=== PATIENT | female | born 1940 | race Caucasian/White ===

== ENCOUNTER 2017-04-13 20:10 | Inpatient (IN) | payer OTHER, MEDICARE ==
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
[2017-04-13 20:57] LABS: % IMMATURE GRANULYOCYTES 0.2 % (0.0-1.1); ABSOLUTE IMMATURE GRANULOCYTES 0.01 10^3/uL (0.00-0.10); ADD DIFF? NO; ADD MORPH? NO; ADD SCAN? NO; ATYPICAL LYMPHOCYTE FLAG 20 (0-99); FRAGMENT RBC FLAG 0 (0-99); HEMATOCRIT 44.2 % (38.0-47.0); HEMOGLOBIN 14.6 g/dL (12.6-16.3); LEFT SHIFT FLG 0 (0-99); LIPEMIA HEMOLYSIS FLAG 80 (0-99); MEAN CELL HEMOGLOBIN 28.9 pg (27.9-34.1); MEAN CELL VOLUME 87.4 fL (81.5-99.8); PLATELET CLUMPS FLAG 0 (0-99); PLATELET COUNT 238 10^3/uL (150-400); RED BLOOD CELL COUNT 5.06 10^6/uL (4.18-5.33); RED CELL DISTRIBUTION WIDTH 13.2 % (11.5-15.2)
--- NOTE | 2017-04-13 21:01 | CPEKG ---
Heart Rate: 69 RR Interval: 870 P-R Interval: 160 QRSD Interval: 96 QT Interval: 452 QTC Interval: 485 P George: 48 QRS George: -26 T Wave George: 118 EKG Severity - ABNORMAL ECG - EKG Impression: SINUS RHYTHM EKG Impression: MULTIPLE VENTRICULAR PREMATURE COMPLEXES EKG Impression: ANTERIOR Q WAVES, POSSIBLY DUE TO LVH Electronically Signed By: Skyler Escobar 13-Apr-2017 21:11:47
[2017-04-13 21:05] LABS: COLOR YELLOW; LEUKOCYTE ESTERASE,URINE 3+ (NEGATIVE); NITRITE,URINE NEGATIVE (NEGATIVE)
[2017-04-13 21:12] LABS: BACTERIA TRACE /hpf (NONE SEEN); WBC,URINE 25-50 /hpf (0-3)
[2017-04-13 21:14] LABS: ANION GAP 15 mEq/L (8-16); CALCIUM 10.2 mg/dL (8.5-10.4); CARBON DIOXIDE 26 mEq/l (22-31); CHLORIDE 101 mEq/L (97-110); CREATININE 0.7 mg/dL (0.6-1.0); GLOMERULAR FILTRATION RATE > 60; GLUCOSE 113 mg/dL (70-100); POTASSIUM 3.3 mEq/L (3.5-5.2); SODIUM 142 mEq/L (134-144)
[2017-04-13] MEDS ORDERED: ACETAMINOPHEN 325 MG TAB PO PRN (22:58)
[2017-04-13] MEDS ORDERED: ONDANSETRON 4 MG/2 ML VIAL IVP PRN (22:58)
[2017-04-13] MEDS ORDERED: ONDANSETRON DISINTEGRATING 4 MG TAB PO PRN (22:58)
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
[2017-04-13] MEDS: oxyCODONE IR 5 MG TAB PO PRN (23:55)
[2017-04-14] MEDS: oxyCODONE IR 5 MG TAB PO PRN ×5 (03:50→22:07)
[2017-04-14] MEDS: ENOXAPARIN 30 MG/0.3 ML SYR SC SCH (07:56)
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
[2017-04-15] MEDS: oxyCODONE IR 5 MG TAB PO PRN ×4 (04:15→19:05)
[2017-04-15] MEDS: LEVOTHYROXINE 88 MCG TAB PO SCH (04:15)
[2017-04-15] MEDS: ENOXAPARIN 30 MG/0.3 ML SYR SC SCH (08:55)
[2017-04-15] MEDS: ASPIRIN 325 MG TAB PO SCH (09:57)
--- NOTE | 2017-04-15 14:07 | HOSPPROG ---
Hospitalist Progress Note Assessment/Plan: 76 yo F with hx of CVA and hypothyroid presenting with inability to care for herself and safely ambulate, possible UTI. Has a history of CVA and is unable to care for herself at home. Today she tells me that her son provides much of her care. She says that he is not harming her and has only been helpful to her. Today is my 1st encounter with the patient. Chart reviewed. * Failure to thrive with inability to care for herself Linda tells me she is unable to walk or use her left side due to the CVA she would very much like to return home but is willing to go to a fdc facility for rehab as long as she could return home * severe protein calorie malnutrition, underweight with a BMI of 16 will ask dietary to see * possible urinary tract infection on antibiotics/ day 2. * history CVA recently on aspirin therapy * hypothyroidism * DVT prophylaxis: low-molecular weight heparin * plan. Spoke with the patient and she is willing to consider a fdc facility to get stronger. She is a bit fearful about going to a fdc facility because her mom in one. patient told the nursing staff that she is having pain on her left side when she deep breathes. Will get a chest x-ray for further evaluation. Subjective: Linda said overall she is feeling poorly, nothing in particular. Objective: Vital Signs Temp Pulse Resp BP Pulse Ox 36.8 C 64 16 146/80 H 91 L 04/15/17 11:33 04/15/17 11:33 04/15/17 11:33 04/15/17 11:33 04/15/17 08:14 04/14/17 04/15/17 04/16/17 05:59 05:59 05:59 Intake Total 0 Balance 0 - Physical Exam Constitutional: not in pain, chronically ill appearing Eyes: PERRL Ears, Nose, Mouth, Throat: hearing normal Cardiovascular: regular rate and rhythym Respiratory: no respiratory distress Gastrointestinal: normoactive bowel sounds Skin: other Musculoskeletal: other ( left arm contracted up) Neurologic: AAOx3 Psychiatric: interacting appropriately ICD10 Worksheet Patient Problems: Problems Problem Status Onset Urinary tract infection Acute
[2017-04-16] MEDS: oxyCODONE IR 5 MG TAB PO PRN ×5 (00:22→22:39)
[2017-04-16] MEDS: LEVOTHYROXINE 88 MCG TAB PO SCH (04:15)
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
[2017-04-16] MEDS: ASPIRIN 325 MG TAB PO SCH (09:31)
[2017-04-16] MEDS: ENOXAPARIN 30 MG/0.3 ML SYR SC SCH (09:31)
[2017-04-17] MEDS: oxyCODONE IR 5 MG TAB PO PRN ×5 (02:18→20:44)
[2017-04-17] MEDS: LEVOTHYROXINE 88 MCG TAB PO SCH (06:26)
[2017-04-17] MEDS: ASPIRIN 325 MG TAB PO SCH (10:42)
[2017-04-17] MEDS: ENOXAPARIN 30 MG/0.3 ML SYR SC SCH (10:43)
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
[2017-04-18] MEDS: oxyCODONE IR 5 MG TAB PO PRN ×5 (00:06→15:25)
[2017-04-18] MEDS: LEVOTHYROXINE 88 MCG TAB PO SCH (05:06)
[2017-04-18] MEDS: ASPIRIN 325 MG TAB PO SCH (08:15)
[2017-04-18] MEDS: ENOXAPARIN 30 MG/0.3 ML SYR SC SCH (08:16)
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
[2017-04-19] MEDS: LEVOTHYROXINE 88 MCG TAB PO SCH (06:13)
[2017-04-19] MEDS: oxyCODONE IR 5 MG TAB PO PRN ×2 (06:30→14:20)
[2017-04-19] MEDS: ASPIRIN 325 MG TAB PO SCH (09:11)
[2017-04-19] MEDS: ENOXAPARIN 30 MG/0.3 ML SYR SC SCH (09:12)
--- NOTE | 2017-04-19 17:04 | ASMTCMCOM ---
CM Note CM Note Notes: CM met w/ pt for dispo planning. Pt reports that her son got out of penitentiary but she has not spoken to him. Pt's ideal plan is to return home with son being the primary flight hostess. CM spoke w/ Violetta Santos NP. PT/OT recommending SNF. Pt is agreeable for CM to make referral to SNF. Made referral to [facility] and [facility]. CM awaiting to hear back. CM to follow. Date Signed: 04/15/2017 03:39 PM Electronically Signed By:Aria Tran
--- NOTE | 2017-04-19 17:05 | ASMTCMCOM ---
CM Note CM Note Notes: Received call late yesterday, Ritchie Green [phone] from [employer]PS will come Thursday am to visit with pt. Date Signed: 04/17/2017 09:01 AM Electronically Signed By:Yaneth Modi
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
--- NOTE | 2017-04-19 17:07 | ASMTCMCOM ---
CM Note JOEY Note Notes: Ritchie Green from APS here to see pt he also spoke w/Kurt from [facility]'s office victims advocates. CM went in with Ritchie to discuss protection order with patient. He explained to pt that a document photographer put order in place and cannot be rescinded until son has court hearing. JOEY also reviewed snfs with pt, pt still refusing [facility] (mother there) or [facility] [place], states doesn't know anyone in [place]). JOEY discussed matter with Princess from [facility], she needs to talk her workers compensation administrator to see if they can take pt. JOEY w/f Date Signed: 04/17/2017 04:46 PM Electronically Signed By:Yaneth Modi
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
--- NOTE | 2017-04-19 17:08 | ASMTCMCOM ---
CM Note CM Note Notes: Princess called from [facility] and declined pt. [facility] [place] is still pending. CM to follow. Date Signed: 04/18/2017 11:52 AM Electronically Signed By:Aria Tran
--- NOTE | 2017-04-19 17:08 | ASMTCMCOM ---
CM Note CM Note Notes: RN came to CM, male in pt's room wondering if it is son. CM went to pt's room and asked who he was, he stated Brenton (pt's son) states his mother has been calling and he needed to give her some papers. CM told Brenton he had a court order and was not allowed contact with pt and he had to leave. CM told broker in charge to call security and he was escorted out of hospital. Security requesting copy of court order to be faxed. Date Signed: 04/17/2017 04:58 PM Electronically Signed By:Yaneth Modi
--- NOTE | 2017-04-19 17:18 | HOSPPROG ---
Hospitalist Progress Note Assessment/Plan: Assessment: 76 yo F with hx of CVA and hypothyroid presenting with inability to care for herself and safely ambulate, possible UTI. Plan: 1. Inability to complete ADLs. Patient unable to safely ambulate given her left hemiparalysis, and her son/slitter scorer is unable to come see patient due to legal proceedings - counseled patient extensively regarding the need for SNF level support, and she is now agreeable - d/w case mgmt, arranging SNF has been potentially challenging b/c of son's legal limitations and pending court date in May 2. Possible UTI. Abnormal UA and dysuria, s/p treatment for uncomplicated cystitis with CTX x 3 days 3. Hx CVA. Dense L hemiparalysis, requiring rehab, get lipid panel, keep on ASA - LUE contracture, patient declining offer for muscle-relaxant 4. Hypothyroid - Patient reports taking daily LTX 5. Severe protein calorie malnutrition - meets aspen criteria, low BMI, dietary consult + ensures Diet - Regular Code - Full per discussion with patient Ppx - LMWH, low dose Dispo - Pending securing lower level of care Subjective: patient denies pain Objective: Vital Signs Temp Pulse Resp BP Pulse Ox 37.0 C 55 L 16 146/74 H 93 04/19/17 15:33 04/19/17 15:33 04/19/17 15:33 04/19/17 15:33 04/19/17 15:33 04/18/17 04/19/17 04/20/17 05:59 05:59 05:59 Intake Total 300 Balance 300 - Time Spent With Patient Time Spent with Patient: greater than 35 minutes Time Spent with Patient: Greater than 35 minutes spent on this patients care, greater than 50% of time spent counseling, educating, and coordinating care regarding the above mentioned plan. - Physical Exam Constitutional: not in pain, chronically ill appearing, cachectic, No uncomfortable Cardiovascular: regular rate and rhythym, no murmur, rub, or gallop Respiratory: no respiratory distress, no rales or rhonchi, clear to auscultation Gastrointestinal: normoactive bowel sounds, soft, non-tender abdomen, no palpable masses Neurologic: AAOx3, other (LUE contracture) Psychiatric: interacting appropriately, not anxious, not encephalopathic, flat affect, No agitated ICD10 Worksheet Patient Problems: Problems Problem Status Onset Urinary tract infection Acute
[2017-04-20] MEDS: oxyCODONE IR 5 MG TAB PO PRN ×4 (01:36→22:30)
[2017-04-20] MEDS: LEVOTHYROXINE 88 MCG TAB PO SCH (06:15)
[2017-04-20] MEDS: ASPIRIN 325 MG TAB PO SCH (07:45)
[2017-04-20] MEDS: ENOXAPARIN 30 MG/0.3 ML SYR SC SCH (07:46)
--- NOTE | 2017-04-20 09:00 | HOSPPROG ---
Hospitalist Progress Note Assessment/Plan: 76 yo F with hx of CVA and hypothyroid presenting with inability to care for herself and safely ambulate, possible UTI. Has a history of CVA and is unable to care for herself at home. She tells me that her son provides much of her care. She says that he is not harming her and has only been helpful to her. * Failure to thrive with inability to care for herself Linda tells me she is unable to walk or use her left side due to the CVA * severe protein calorie malnutrition, underweight with a BMI of 16 eating and drinking well when I evaluated her * possible urinary tract infection Received treatment * history CVA recently on aspirin therapy * Pulmonary nodules she should get further imaging in 6 months, a CT scan without contrast * hypothyroidism * DVT prophylaxis: low-molecular weight heparin * plan. Awaiting for placement. The patient is now listed as a confidential patient. Subjective: Linda said she is feeling fine. Objective: Vital Signs Temp Pulse Resp BP Pulse Ox 37 C 54 L 18 156/107 H 90 L 04/20/17 08:00 04/20/17 08:00 04/20/17 08:00 04/20/17 08:00 04/20/17 08:00 04/19/17 04/20/17 04/21/17 05:59 05:59 05:59 Intake Total 300 300 Balance 300 300 - Physical Exam Constitutional: not in pain, chronically ill appearing Eyes: PERRL Ears, Nose, Mouth, Throat: hearing normal Cardiovascular: regular rate and rhythym Respiratory: no respiratory distress Gastrointestinal: normoactive bowel sounds Skin: warm Musculoskeletal: other (left upper extremity with contracture) Neurologic: other (alert and conversant) Psychiatric: interacting appropriately, not anxious ICD10 Worksheet Patient Problems: Problems Problem Status Onset Urinary tract infection Acute
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
[2017-04-21] MEDS: oxyCODONE IR 5 MG TAB PO PRN ×6 (02:53→20:54)
[2017-04-21] MEDS: LEVOTHYROXINE 88 MCG TAB PO SCH (06:16)
[2017-04-21] MEDS: ASPIRIN 325 MG TAB PO SCH (08:04)
[2017-04-21] MEDS: ENOXAPARIN 30 MG/0.3 ML SYR SC SCH (08:05)
--- NOTE | 2017-04-21 08:48 | HOSPPROG ---
Hospitalist Progress Note Assessment/Plan: 76 yo F with hx of CVA and hypothyroid presenting with inability to care for herself and safely ambulate, possible UTI. Has a history of CVA and is unable to care for herself at home. She tells me that her son provides much of her care. She says that he is not harming her and has only been helpful to her. * Failure to thrive with inability to care for herself Linda tells me she is unable to walk or use her left side due to the CVA * severe protein calorie malnutrition, underweight with a BMI of 16 eating and drinking well when I evaluated her * possible urinary tract infection Received treatment * history CVA recently on aspirin therapy * Pulmonary nodules she should get further imaging in 6 months, a CT scan without contrast * hypothyroidism * DVT prophylaxis: low-molecular weight heparin * plan. Awaiting for placement. The patient is now listed as a confidential patient. Patient states that she is on methadone for chronic pain. Pharmacy reviewed the PDMP /her last refill was last year in May. Subjective: Linda has no complaints of pain. Overall is feeling well Objective: Vital Signs Temp Pulse Resp BP Pulse Ox 36.9 C 56 L 18 154/79 H 89 L 04/20/17 22:45 04/20/17 22:45 04/20/17 22:45 04/20/17 22:45 04/20/17 22:45 04/20/17 04/21/17 04/22/17 05:59 05:59 05:59 Intake Total 300 Balance 300 - Physical Exam Constitutional: not in pain, chronically ill appearing Ears, Nose, Mouth, Throat: hearing normal Cardiovascular: regular rate and rhythym Respiratory: no respiratory distress Skin: warm Musculoskeletal: generalized weakness, other (Left arm contracted) Neurologic: other (Alert and oriented to person place but is forgetful) Psychiatric: interacting appropriately, poor memory ICD10 Worksheet Patient Problems: Problems Problem Status Onset Urinary tract infection Acute
[2017-04-22] MEDS: oxyCODONE IR 5 MG TAB PO PRN ×5 (02:29→23:21)
[2017-04-22] MEDS: LEVOTHYROXINE 88 MCG TAB PO SCH (05:36)
[2017-04-22] MEDS: ENOXAPARIN 30 MG/0.3 ML SYR SC SCH (09:02)
[2017-04-22] MEDS: ASPIRIN 325 MG TAB PO SCH (09:03)
--- NOTE | 2017-04-22 16:19 | ASMTCMCOM ---
CM Note CM Note Notes: CM met w/ pt for dispo planning. Pt was on the phone w/ the DA's office upon CM's arrival. Pt would like to revoke protection order on her son. CM spoke w/ Josselyn, at the DA's office and pt can have the protection order revoked as long as she provides written request. Pt does not want CM to make further referrals to SNF and would like to return home with son. CM has left messages for Clyde Thomas, APS worker ([phone]) and have not been able to speak to him directly today. CM to follow. Date Signed: 04/22/2017 04:19 PM Electronically Signed By:ARNAV Ramirez
--- NOTE | 2017-04-22 16:42 | HOSPPROG ---
Hospitalist Progress Note Assessment/Plan: 76 yo F with hx of CVA and hypothyroid presenting with inability to care for herself and safely ambulate, possible UTI. Has a history of CVA and is unable to care for herself at home. She tells me that her son provides much of her care. She says that he is not harming her and has only been helpful to her. * Failure to thrive with inability to care for herself Linda tells me she is unable to walk or use her left side due to the CVA * severe protein calorie malnutrition, underweight with a BMI of 16 eating and drinking well when I evaluated her * possible urinary tract infection Received treatment * history CVA recently on aspirin therapy * Pulmonary nodules she should get further imaging in 6 months, a CT scan without contrast * hypothyroidism * DVT prophylaxis: low-molecular weight heparin * plan. Awaiting for placement. The patient is now listed as a confidential patient. Received a report on her from her PCP/ this was given to CM for f/u. Subjective: Linda has no complaints/eating well. Objective: Vital Signs Temp Pulse Resp BP Pulse Ox 37.2 C 68 16 130/60 H 92 04/22/17 15:29 04/22/17 15:29 04/22/17 15:29 04/22/17 15:29 04/22/17 15:29 04/21/17 04/22/17 04/23/17 05:59 05:59 05:59 Intake Total 200 Balance 200 - Physical Exam Constitutional: no apparent distress, appears nourished, not in pain Ears, Nose, Mouth, Throat: hearing normal Respiratory: no respiratory distress Skin: warm Musculoskeletal: generalized weakness, other (left sided) Neurologic: AAOx3 Psychiatric: interacting appropriately ICD10 Worksheet Patient Problems: Problems Problem Status Onset Urinary tract infection Acute
[2017-04-23] MEDS ORDERED: DIAZEPAM 5 MG TAB PO ONE (00:40)
[2017-04-23] MEDS: oxyCODONE IR 5 MG TAB PO PRN ×6 (03:26→22:15)
[2017-04-23] MEDS: LEVOTHYROXINE 88 MCG TAB PO SCH (05:07)
[2017-04-23] MEDS: ASPIRIN 325 MG TAB PO SCH (08:32)
[2017-04-23] MEDS: ENOXAPARIN 30 MG/0.3 ML SYR SC SCH (08:32)
--- NOTE | 2017-04-23 13:31 | HOSPPROG ---
Hospitalist Progress Note Assessment/Plan: 76 yo F with hx of CVA and hypothyroid presenting with inability to care for herself and safely ambulate, possible UTI. Has a history of CVA and is unable to care for herself at home. She tells me that her son provides much of her care. She says that he is not harming her and has only been helpful to her. * Failure to thrive with inability to care for herself Linda tells me she is unable to walk or use her left side due to the CVA * severe protein calorie malnutrition, underweight with a BMI of 16 eating and drinking well when I evaluated her * possible urinary tract infection Received treatment * history CVA recently on aspirin therapy * Pulmonary nodules she should get further imaging in 6 months, a CT scan without contrast * hypothyroidism * DVT prophylaxis: low-molecular weight heparin * plan. Awaiting for placement. The patient is now listed as a confidential patient. Received a report on her from her PCP/ this was given to CM for f/u. D/W Cm will find SNF placement. APS involved. Subjective: Feels well. Eager to go home. Objective: Vital Signs Temp Pulse Resp BP Pulse Ox 36.9 C 56 L 18 160/65 H 94 04/23/17 07:30 04/23/17 07:30 04/23/17 07:30 04/23/17 07:30 04/23/17 07:30 04/22/17 04/23/17 04/24/17 05:59 05:59 05:59 Intake Total 200 300 Balance 200 300 - Physical Exam Constitutional: appears nourished, chronically ill appearing Eyes: PERRL, anicteric sclera Ears, Nose, Mouth, Throat: moist mucous membranes, hearing normal Cardiovascular: No JVD, No edema Respiratory: no respiratory distress, reduced air movement Gastrointestinal: No tenderness, No ascites Skin: warm, normal color Musculoskeletal: no joint effusions, generalized weakness Neurologic: AAOx3 Psychiatric: not anxious, not encephalopathic, thought process linear ICD10 Worksheet Patient Problems: Problems Problem Status Onset Urinary tract infection Acute
--- NOTE | 2017-04-23 15:55 | ASMTCMCOM ---
CM Note CM Note Notes: Today Keira was told in report that Arcos in [employer]'s office had informed [facility] staff that Pt. could write a letter to rescind current restraining order involving Pt's son, Brenton or . Pt. would like to go home with the care of Brenton. Pt. is very aware that she cannot take care of herself at home without him. Pt. states there are no other family members or friends who can provide temporary care. Keira called Brenton at both of his numbers and left voicemail messages to ask him to come get Pt. After my call to Brenton, later this am, Aniceto Thomas from Adult Protective Services (APS) called Keira back and stated that Pt. is NOT safe to go home with Brenton and if she does, the police will arrest Brenton. Pt. would then just be brought back to [facility] emergency room for placement. Aniceto spoke w/ Pt. on the phone twice to let her know that she could not go home without the above consequences. Pt. stated to Keira she would go to rehab temporarily, but wants to go home as soon as the situation with her son is worked out. Keira sent new referral via [facility] to [facility]. Checked back in with Myrna to see if Pt. is still accepted. Await responses from SNFs. Plan to d/c Pt. tomorrow. Note: Pt's home address is [address] [place] [address]. [place] [address]. Date Signed: 04/23/2017 03:54 PM Electronically Signed By:Carmen Carmen LCSW
[2017-04-24] MEDS: oxyCODONE IR 5 MG TAB PO PRN ×5 (01:06→13:28)
[2017-04-24] MEDS ORDERED: GABAPENTIN 300 MG CAP PO ONE (02:03)
[2017-04-24] MEDS: LEVOTHYROXINE 88 MCG TAB PO SCH (06:19)
[2017-04-24] MEDS: ENOXAPARIN 30 MG/0.3 ML SYR SC SCH (09:09)
[2017-04-24] MEDS: ASPIRIN 325 MG TAB PO SCH (09:10)
[2017-04-24 09:12] VITALS: BP 168/88; PULSE 60; RESP 12; TEMP 98.8; O2SAT 94
--- NOTE | 2017-04-24 11:20 | PDIAF ---
- Diagnosis Diagnosis: FTT Code Status: Full Code - Medication Management Discharge Medications: Medications to Continue on Transfer Aspirin [Aspirin 325 mg (*)] 163 mg PO DAILY 04/14/17 [Last Taken 04/12/17] Levothyroxine [Synthroid 88 mcg (*)] 88 mcg PO DAILY06 04/14/17 [Last Taken 11/24 07:00] Acetaminophen [Tylenol 325mg (*)] 650 mg PO Q4HRS PRN tab 04/24/17 [Last Taken Unknown] oxyCODONE IR [Oxycodone Ir (*)] 5 - 10 mg PO Q3 PRN tab 04/24/17 [Last Taken Unknown] Discharge Medications: Refer to the Discharge Home Medication list for PRN reason. PICC Care - Routine: N/A - Orders Services needed: Registered Nurse, Physical Therapy, Occupational Therapy Diet Recommendation: no restrictions on diet - Follow Up Care Current Providers and Referrals: Patient,NotPresent [Unknown] - As per Instructions
--- NOTE | 2017-04-24 12:41 | ASMTCMCOM ---
CM Note CM Note Notes: With Pt's explicit verbal consent, Danielar spoke with Pt's son Brenton on the phone yesterday and today. Discussed Pt's medical status and plans for her to d/c to [facility] in [place]. Son good with plan under circumstances. Today met w/ Pt. and confirmed she is still interested in going to [facility] for rehab. Pt. is amenable. Jolene from [facility] came to meet w/ Pt. Pt. appreciative of meeting. Plan to d/c today at 14:00 via stretcher. SWer completed PCS form and gave w/ Facesheet to [employer] transport company. Sent d/c orders and meds via [facility] to [facility]. Today Danielar let APS worker Aniceto Munoznc know that Pt. d/cing today to [facility]. Left detailed vm msg for Aniceto. Discharge to [facility] today. Date Signed: 04/24/2017 12:40 PM Electronically Signed By:Carmen Carmen LCSW
--- NOTE | 2017-04-24 15:36 | GDS ---
[f rep st] DISCHARGE SUMMARY DISCHARGE DIAGNOSES: 1. Failure to thrive. 2. Weakness. 3. Severe protein calorie malnutrition. 4. History of cerebrovascular accident. 5. Pulmonary nodules. PHYSICAL EXAMINATION: GENERAL: The patient is alert. VITAL SIGNS: Afebrile at 37.1, pulse is 60, respiratory rate 12, blood pressure is 168/88. She is saturating 94% on room air. I have seen and evaluated the patient on the day of discharge. HOSPITAL COURSE: The patient is a 77 year-old female, who has a history of a CVA and hypothyroidism, presented to the emergency room and was diagnosed with: 1. Failure to thrive and inability to care for herself. The patient resides with her son normally. I am told by the social worker psychiatric that APS is involved with her care. Please refer to social work notes. The patient will be discharged to [facility] facility for further management and strengthening. 2. Severe protein calorie malnutrition. The patient has been encouraged to increase her oral intake. 3. History of pulmonary nodules. Followup CT in 6 months is recommended. 4. History of hypothyroidism. This is stable. DISPOSITION: Ms. Sainz will be discharged to [facility] facility for further rehabilitation and management. There are no pending studies. Followup will be with her primary care physician. DISCHARGE MEDICATIONS: Please refer to EMR form. I have not adjusted these medications to the best of my knowledge. I spent greater than 35 minutes in the care, coordination, and management of this patient's disposition in coordination with Case Management. /[id number]/MODL MTDD
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
== END 2017-04-24 14:36 | DRG 640 ==
LOC: EDUNIT# → F3E 23:10 → EEVIPCON 04-14 17:30 → OBSVTOIN 04-14 17:30 → F3E 04-17 18:21
PROVIDERS: ADMIT Internal Medicine; ATTEND Student in an Organized Health Care Education/Training Program
DX: R62.7 Adult failure to thrive (principal); E43 Unspecified severe protein-calorie malnutrition; I69.354 Hemiplegia and hemiparesis following cerebral infarction affecting left non-dominant side; Z68.1 Body mass index [BMI] 19.9 or less, adult; N30.90 Cystitis, unspecified without hematuria; R91.8 Other nonspecific abnormal finding of lung field; E03.9 Hypothyroidism, unspecified; Z96.659 Presence of unspecified artificial knee joint
CPT/HCPCS: 92507-GN; 92523-GN; 96365; 97112-GO; 97162-GP; 97166-GO; 97530-GO; 97530-GP; 97535-GO; G0378; G8978-GP-CL; G8978-GP-CN; G8979-GP-CK; G8987-GO-CM; G8988-GO-CK; G9168-GN-CK; G9169-GN-CJ; J0696; J1650